=== PATIENT | male | born 1935 | race Caucasian/White ===

== ENCOUNTER → 2017-04-10 | Outpatient (CLI) | payer MEDICARE, MEDICAID | END | disposition home or self-care (01) | LOC: NM 00:26 | DX: M19.019 Primary osteoarthritis, unspecified shoulder (principal); M17.9 Osteoarthritis of knee, unspecified; Z85.118 Personal history of other malignant neoplasm of bronchus and lung ==

== ENCOUNTER → 2017-04-18 | Outpatient (CLI) | payer MEDICARE, MEDICAID | END | disposition home or self-care (01) | LOC: CT 04-12 11:00 | DX: H53.2 Diplopia (principal); H53.8 Other visual disturbances; Z85.118 Personal history of other malignant neoplasm of bronchus and lung ==

== ENCOUNTER → 2018-01-12 | Outpatient (CLI) | payer MEDICARE, MEDICAID | END | disposition home or self-care (01) | LOC: CT 02:07 | DX: J18.9 Pneumonia, unspecified organism (principal); J44.9 Chronic obstructive pulmonary disease, unspecified ==

== ENCOUNTER → 2019-07-07 | Outpatient (CLI) | payer MEDICARE, MEDICAID ==
[~2019-07-07] MED LIST: AQUAPHOR OINTM396 GM T; B121000 MCG/1 IM; CARVEDILOL12.5 MG PO; DIGOX250 MCG PO; ELIQUIS5 M1 PO; GLYCOLAX119 GM PO; HYDROCODONE-AC1 EAC2 PO; Ipratropium Brom3 ML INH; KENALOG-4040 MG/1 ML IM; KETOCONAZOLE 1120 M1 T; NASAL SPRAY30 ML NAS; NEURONTIN300 MG PO; Nizoral 2%15 GM T; PRIMIDONE50 MG PO; PROVENTIL HFA6.7 GM INH; PROZAC20 MG PO; REFRESH TEARS15 ML OP; REQUIP1 M1 PO; SIMVASTATIN40 MG PO; SYMB80 INH; TYLENOL325 M1 PO; VITAMIN B1250 MCG IM; VITAMIN B1250 MCG PO; VITAMIN D35000 UNIT PO; [UNRECOGNIZED DRUG - OTHER] OP
== END | disposition home or self-care (01) ==
LOC: CT 00:18
DX: I25.10 Atherosclerotic heart disease of native coronary artery without angina pectoris (principal); J44.9 Chronic obstructive pulmonary disease, unspecified; Z85.118 Personal history of other malignant neoplasm of bronchus and lung